=== PATIENT | female | born 1970 | race Caucasian/White ===

== ENCOUNTER → 2021-02-27 | Outpatient (CLI) | payer BC ==
[~2021-02-27] MED LIST: CELE200C PO; CETI10TA76 PO; DULO30CA2 PO; FERR240T2 PO; LEVO50TA PO; OMEP-110 PO; OMEP40CA42 PO; TRIA10.8 NS; VITA1CAP PO; magnesium PO
[2021-02-27 09:43] LABS: BASOPHILS % (AUTO) 1 % (0-1); EOSINOPHILS % (AUTO) 2 % (1-7); LYMPHOCYTES % (AUTO) 49 % (22-44); MEAN CORPUSCULAR HEMOGLOBIN 29.6 pg (27.0-34.8); MEAN CORPUSCULAR HGB CONC 33.4 g/dL (32.4-35.8); MEAN PLATELET VOLUME 7.7 fL (7.4-10.4); MONOCYTES % (AUTO) 9 % (2-9); NEUTROPHILS % (AUTO) 40 % (42-75); PLATELET COUNT 213 x10^3/uL (130-400); RED BLOOD COUNT 4.54 x10^6/uL (3.82-5.3); RED CELL DISTRIBUTION WIDTH 15.2 % (9.6-15.2)
[2021-02-27 09:50] LABS: ANION GAP 4 mmol/L (5-15); CALCIUM 9.9 mg/dL (8.5-10.1); CHLORIDE 108 mmol/L (98-107); CREATININE 1.06 mg/dL (0.55-1.02); INTERNATIONAL NORMALIZED RATIO 1.02 (0.93-1.1); PROTHROMBIN TIME 10.9 Seconds (9.6-11.5)
[2021-02-27 10:15] LABS: MD SCAN
== END | disposition home or self-care (01) ==
LOC: STAR 08:36
PROVIDERS: ATTEND Neurological Surgery
DX: Z01.818 Encounter for other preprocedural examination (principal); G25.0 Essential tremor
CPT/HCPCS: 36415; 80048; 85025; 85610; 85730

== ENCOUNTER 2021-03-02 10:34 | Outpatient (CLI) | payer BC ==
[~2021-03-02 10:34] MED LIST changes: -OMEP40CA42 PO; +OMEP40CA8 PO
[2021-03-09] MEDS ORDERED: OXYC1TAB12 PO (12:15)
== END 2021-03-02 23:59 | disposition home or self-care (01) ==
LOC: STAR 10:34
PROVIDERS: ATTEND Radiology Radiation Oncology
DX: Z20.822 Contact with and (suspected) exposure to COVID-19 (principal)
CPT/HCPCS: U0003

== ENCOUNTER 2021-03-06 11:12 | Day surgery (SDC) | payer BC ==
[~2021-03-06] VITALS: Ht 165.1 cm; Wt 62.1 kg
[~2021-03-06 11:12] MED LIST changes: +ACETAMINOPHEN 325 MG TABLET PO PRN; +DIAZEPAM 5 MG/ML, 2ML IVPush PRN; +DIPHENHYDRAMINE 50 MG/ML, 1ML IVPush PRN; +EPHEDRINE 50 MG/ML, 1ML IVPush PRN; +FENTANYL PF 100 MCG/2ML IV PRN; +HALOPERIDOL 5 MG/ML IV PRN; +KETOROLAC 30 MG/1 ML IV PRN; +LABETALOL 5MG/ML, 20ML IV PRN; +MEPERIDINE/PF 25MG/0.5ML IVPush PRN; +METOCLOPRAMIDE 5 MG/ML, 2ML IVPush PRN; +METOPROLOL 1 MG/ML, 5ML IV PRN; +OMEP40CA42 PO; -OMEP40CA8 PO; +ONDANSETRON 2MG/ML, 2ML IVPush PRN; +OXYcodone 5 MG/5 ML ORAL.SOL UDC PO PRN; +PLEASE ENTER HEIGHT AND WEIGHT MC SCH; +PROMETHAZINE 25 MG/ML, 1ML IVPush PRN; +hydrALAzine 20 MG/ML, 1ML IV PRN
[2021-03-06] MEDS ORDERED: MIDAZOLAM 1 MG/ML, 2ML ONE (11:55)
[2021-03-06] MEDS ORDERED: SODIUM CHLORIDE 0.9% 1,000 ML IV SCH (12:00)
[2021-03-06] MEDS ORDERED: CHLORHEXIDINE 15 ML UDC ONE (12:13)
[2021-03-06 12:28] VITALS: BP 126/79
[2021-03-06] MEDS ORDERED: LACTATED RINGERS 1,000 ML IV SCH (12:30)
[2021-03-06] MEDS ORDERED: CHLORHEXIDINE 15 ML UDC PO ONE (12:30)
[2021-03-06] MEDS ORDERED: GADOTERATE 7.5 MMOL/15ML SYR ONE (14:29)
== END 2021-03-06 15:45 | disposition home or self-care (01) ==
LOC: OUT 11:12 → EDSTATUS 12:45 → OUT 15:45
PROVIDERS: ATTEND Neurological Surgery
DX: G25.0 Essential tremor (principal); D35.2 Benign neoplasm of pituitary gland; E03.9 Hypothyroidism, unspecified; E22.1 Hyperprolactinemia; K21.9 Gastro-esophageal reflux disease without esophagitis; F32.9 Major depressive disorder, single episode, unspecified; M19.90 Unspecified osteoarthritis, unspecified site; D64.9 Anemia, unspecified; Z79.899 Other long term (current) drug therapy; Z88.0 Allergy status to penicillin; Z88.8 Allergy status to other drugs, medicaments and biological substances; Z91.018 Allergy to other foods; Z98.890 Other specified postprocedural states; Z82.61 Family history of arthritis; Z82.49 Family history of ischemic heart disease and other diseases of the circulatory system
CPT/HCPCS: 70553; A9575; J2250; J7120

== ENCOUNTER 2021-03-08 05:51 | Inpatient (IN) | payer BC ==
[~2021-03-08] VITALS: Ht 165.1 cm; Wt 55.1 kg
[~2021-03-08 05:51] MED LIST changes: -ACETAMINOPHEN 325 MG TABLET PO PRN; -DIAZEPAM 5 MG/ML, 2ML IVPush PRN; -DIPHENHYDRAMINE 50 MG/ML, 1ML IVPush PRN; -EPHEDRINE 50 MG/ML, 1ML IVPush PRN; -FENTANYL PF 100 MCG/2ML IV PRN; -HALOPERIDOL 5 MG/ML IV PRN; -KETOROLAC 30 MG/1 ML IV PRN; -LABETALOL 5MG/ML, 20ML IV PRN; -MEPERIDINE/PF 25MG/0.5ML IVPush PRN; -METOCLOPRAMIDE 5 MG/ML, 2ML IVPush PRN; -METOPROLOL 1 MG/ML, 5ML IV PRN; -ONDANSETRON 2MG/ML, 2ML IVPush PRN; -OXYcodone 5 MG/5 ML ORAL.SOL UDC PO PRN; -PLEASE ENTER HEIGHT AND WEIGHT MC SCH; -PROMETHAZINE 25 MG/ML, 1ML IVPush PRN; -hydrALAzine 20 MG/ML, 1ML IV PRN
[2021-03-08] MEDS ORDERED: LACTATED RINGERS 1,000 ML IV SCH (07:00)
[2021-03-08] MEDS ORDERED: CHLORHEXIDINE 15 ML UDC PO ONE (07:00)
[2021-03-08] MEDS ORDERED: CHLORHEXIDINE 15 ML UDC ONE (07:07)
[2021-03-08] MEDS ORDERED: CEFUROXIME 1.5 GM ONE (07:09)
[2021-03-08] MEDS ORDERED: BUPIVACAINE/PF 0.5% ONE (07:09)
[2021-03-08] MEDS ORDERED: DEXMEDETOMIDINE 200 MCG/2 ML ONE (07:09)
[2021-03-08] MEDS ORDERED: BACITRACIN 50,000 UNIT ONE (07:10)
[2021-03-08] MEDS ORDERED: LIDOCAINE/MPF 2%-EPI 1:200K, 20 ML ONE (07:10)
[2021-03-08] MEDS ORDERED: BACITRACIN OINT 500U/GM, 15 GM ONE (07:10)
[2021-03-08] MEDS ORDERED: SODIUM BICARBONATE 1 MEQ/ML, 50ML VIAL ONE (07:10)
[2021-03-08] MEDS ORDERED: MINERAL OIL 10 ML VIAL MC ONE (07:10)
[2021-03-08] MEDS ORDERED: BISACODYL 10 MG SUPP PR PRN (11:30)
[2021-03-08] MEDS ORDERED: morphine SULFATE 10 MG/ML, 1ML IV PRN (11:30)
[2021-03-08] MEDS ORDERED: MAGNESIUM HYDROXIDE 8%, 30ML UDC PO PRN (11:30)
[2021-03-08] MEDS: POTASSIUM CHLORIDE 40 MEQ in SODIUM CHLORIDE 0.9% 1,000 ML IV SCH ×2 (11:30→16:25)
[2021-03-08] MEDS ORDERED: OXYcodone/APAP 5/325MG TABLET PO PRN (11:30)
[2021-03-08] MEDS ORDERED: ACETAMINOPHEN 325 MG TABLET PO PRN (12:00)
[2021-03-08] MEDS ORDERED: PROMETHAZINE 25 MG SUPP PR PRN (12:00)
[2021-03-08] MEDS ORDERED: METHOCARBAMOL 1,000 MG in DEXTROSE 5% 100 ML IV PRN (12:00)
[2021-03-08] MEDS ORDERED: FENTANYL PF 100 MCG/2ML IV PRN (12:00)
[2021-03-08] MEDS ORDERED: OXYcodone 5 MG/5 ML ORAL.SOL UDC PO PRN (12:00)
[2021-03-08] MEDS ORDERED: PROMETHAZINE 25 MG/ML, 1ML IVPush PRN (12:00)
[2021-03-08] MEDS ORDERED: ONDANSETRON 2MG/ML, 2ML IVPush PRN (12:00)
[2021-03-08] MEDS ORDERED: LORazepam 2 MG/ML, 1ML IVPush PRN (12:00)
[2021-03-08] MEDS ORDERED: HYDROmorphone 1 MG/ML, 1ML INJ IVPush PRN (12:00)
[2021-03-08] MEDS ORDERED: ACETAMINOPHEN 650 MG/20.3 ML UDC ONE (14:12)
[2021-03-08] MEDS: CEFAZOLIN PMX 1GM/50ML 50 ML IVPB SCH (16:25)
[2021-03-08] MEDS ORDERED: DULOXETINE 30 MG CAPSULE.DR PO SCH (21:00)
[2021-03-09] MEDS: CEFAZOLIN PMX 1GM/50ML 50 ML IVPB SCH (00:31)
[2021-03-09] MEDS: POTASSIUM CHLORIDE 40 MEQ in SODIUM CHLORIDE 0.9% 1,000 ML IV SCH (05:41)
[2021-03-09] MEDS ORDERED: LEVOTHYROXINE 50 MCG TABLET PO SCH (06:00)
[2021-03-09] MEDS ORDERED: SENNA/DOCUSATE TABLET PO SCH (09:00)
[2021-03-09] MEDS ORDERED: OMEPRAZOLE 20 MG CAPSULE.DR PO SCH (09:00)
[2021-03-09] MEDS ORDERED: OXYC1TAB14 PO (12:15)
[2021-03-09] MEDS ORDERED: CEPH-376 PO (12:49)
[2021-03-09] MEDS ORDERED: CEPH750C9 PO (12:49)
== END 2021-03-09 13:29 | disposition home or self-care (01) | DRG 27 ==
LOC: ORIP 05:51 → EDSTATUS 07:30 → CCU 15:30 → CSU 03-09 08:03 → CCU 03-09 08:08
PROVIDERS: ADMIT Neurological Surgery; ATTEND Neurological Surgery
PROC: 00H03MZ Insertion of Neurostimulator Lead into Brain, Percutaneous Approach (ICD-10-PCS; 2021-03-08)
PROC: 2W30XYZ Immobilization of Head using Other Device (ICD-10-PCS; principal; 2021-03-08 07:30)
DX: G25.0 Essential tremor (principal)
CPT/HCPCS: 36415; S0020; 70450; 86850; 86900; 87081; C1713; G0378; J0690; J0697; J3480; C1767; J7030; J7120

== ENCOUNTER → 2021-03-21 | Outpatient (CLI) | payer BC ==
[~2021-03-21] MED LIST changes: +CEPH-376 PO; +CEPH750C9 PO; +OXYC1TAB14 PO
== END | disposition home or self-care (01) ==
LOC: STAR 12:07
PROVIDERS: ATTEND Neurological Surgery
DX: Z20.822 Contact with and (suspected) exposure to COVID-19 (principal)
CPT/HCPCS: U0003; U0005

== ENCOUNTER 2021-03-27 05:41 | Day surgery (SDC) | payer BC ==
[~2021-03-27] VITALS: Ht 165.1 cm; Wt 61.0 kg
[2021-03-27 06:33] VITALS: BP 115/66
[2021-03-27] MEDS ORDERED: FENTANYL PF 100 MCG/2ML ONE ×2 (06:53→09:59)
[2021-03-27] MEDS ORDERED: MIDAZOLAM 1 MG/ML, 2ML ONE (06:54)
[2021-03-27] MEDS ORDERED: ONDANSETRON 2MG/ML, 2ML ONE (06:57)
[2021-03-27] MEDS ORDERED: NEOSTIGMINE 1 MG/ML, 10ML ONE (06:57)
[2021-03-27] MEDS ORDERED: CEFAZOLIN 1,000 MG ONE (06:57)
[2021-03-27] MEDS ORDERED: PROPOFOL 10 MG/ML, 20ML ONE (06:57)
[2021-03-27] MEDS ORDERED: DEXAMETHASONE 4 MG/ML, 1ML ONE (06:57)
[2021-03-27] MEDS ORDERED: ROCURONIUM 10MG/ML,5ML ONE (06:57)
[2021-03-27] MEDS ORDERED: SUCCINYLCHOLINE 20 MG/ML, 10ML ONE (06:57)
[2021-03-27] MEDS ORDERED: GLYCOPYRROLATE 0.2MG/1ML, 5ML ONE (06:57)
[2021-03-27] MEDS ORDERED: LIDOCAINE-MPF 1%, 2ML INFIL ONE (07:00)
[2021-03-27] MEDS ORDERED: CHLORHEXIDINE 15 ML UDC PO ONE (07:00)
[2021-03-27] MEDS ORDERED: LACTATED RINGERS 1,000 ML IV SCH (07:00)
[2021-03-27] MEDS ORDERED: BACITRACIN 50,000 UNIT ONE (07:02)
[2021-03-27] MEDS ORDERED: BUPIVACAINE/PF 0.5% ONE (07:02)
[2021-03-27] MEDS ORDERED: EPINEPHRINE 1 MG/ML, 1ML ONE (07:02)
[2021-03-27] MEDS ORDERED: BACITRACIN OINT 500U/GM, 15 GM ONE (07:02)
[2021-03-27] MEDS ORDERED: SCOPOLAMINE 1MG PATCH TD STA (07:13)
[2021-03-27] MEDS ORDERED: SCOPOLAMINE 1MG PATCH TD ONE (07:15)
[2021-03-27] MEDS ORDERED: EPHEDRINE 50 MG/ML, 1ML ONE (07:43)
[2021-03-27] MEDS ORDERED: PHENYLEPHRINE 10 MG/ML ONE (07:43)
[2021-03-27] MEDS ORDERED: HYDROcodone/APAP 7.5-325MG/15ML UDC PO PRN (08:00)
[2021-03-27] MEDS ORDERED: MEPERIDINE/PF 25MG/0.5ML IVPush PRN (08:00)
[2021-03-27] MEDS ORDERED: HYDROmorphone 1 MG/ML, 1ML INJ IVPush PRN (08:00)
[2021-03-27] MEDS ORDERED: OXYcodone 5 MG/5 ML ORAL.SOL UDC PO PRN (08:00)
[2021-03-27] MEDS ORDERED: ONDANSETRON 2MG/ML, 2ML IVPush PRN (08:00)
[2021-03-27] MEDS ORDERED: PROMETHAZINE 25 MG/ML, 1ML IVPush PRN (08:00)
[2021-03-27] MEDS ORDERED: HYDROcodone/APAP 7.5-325MG/15ML UDC ONE (09:50)
[2021-03-27] MEDS ORDERED: MEPERIDINE/PF 25MG/ML,1ML ONE (09:50)
[2021-03-27] MEDS: FENTANYL PF 100 MCG/2ML IV PRN ×2 (10:01→10:10)
== END 2021-03-27 12:43 | disposition home or self-care (01) ==
LOC: OUT 05:41
PROVIDERS: ATTEND Neurological Surgery
DX: G25.0 Essential tremor (principal); K21.9 Gastro-esophageal reflux disease without esophagitis; F32.9 Major depressive disorder, single episode, unspecified; Z79.890 Hormone replacement therapy; Z79.891 Long term (current) use of opiate analgesic; Z79.899 Other long term (current) drug therapy; Z88.0 Allergy status to penicillin; Z91.013 Allergy to seafood; Z91.040 Latex allergy status; Z98.890 Other specified postprocedural states; Z82.61 Family history of arthritis; Z82.49 Family history of ischemic heart disease and other diseases of the circulatory system
CPT/HCPCS: 61886; C1767; C1883; J0171; J0330; J0690; J1100; J2175; J2250; J2370; J2405; J2704; J2710; J3010; J7120